=== PATIENT | male | born 1975 | race Two or more races ===

== ENCOUNTER 2024-09-20 19:36 | Emergency (ER) | payer MEDICAID, SELFPAY ==
--- NOTE | 2024-09-20 19:38 | PD.EDALLER ---
ED Allergic Reaction RME/HPI General Chief complaint: Epistaxis/Nasal Foreign Body Stated complaint: STAT Arrival date/time: 09/20/24 19:36 RME / HPI RME / HPI narrative: This section includes all my notes and documentations, including HPI, PE, and ED course. Messi Anna MD HPI: ROS: All negative except as documented in HPI. Physical Exam: General: Alert and oriented. Eyes: Conjunctivae and lids clear. ENT: No nasal congestion. Neck: Supple. Lungs: No respiratory distress. Skin: Warm and dry. Neuro: Alert and oriented X 3. Physical Exam: General: Alert and oriented. No acute distress when remaining still. Eyes: Conjunctivae and lids clear. ENT: No nasal congestion. Neck: Supple. Heart: RRR. Lungs: No respiratory distress. Good air movement. No rhonchi, wheezing, rales. Abdomen: Soft and nontender. Normal bowel sounds. No distension. No rebound or guarding. Back: No CVA tenderness. Skin: Warm and dry. Neuro: Alert and oriented X 3. Physical Exam: General: Alert and oriented. No acute distress. Eyes: Conjunctivae and lids clear. EOMI. PERRL. ENT: No nasal congestion. Pharynx normal. Tympanic membrane normal bilaterally. Neck: Supple. No lymphadenopathy. No JVD. Heart: RRR. Lungs: No respiratory distress. Good air movement. No rhonchi, wheezing, rales. Chest: No tenderness. Abdomen: Soft and nontender. Normal bowel sounds. No distension. No rebound or guarding. Back: No CVA tenderness. Legs: No clubbing, cyanosis, edema. Skin: Warm and dry. Neuro: Alert and oriented X 3. Cranial Nerves II-XII grossly intact. No peripheral motor deficits. Musculoskeletal: All major joints and bones are not tender with no limited ROM. I reviewed EMS and prison notes. I reviewed all diagnostic test results: My interpretation of the EKG is: My interpretation of the chest x-ray is: My review of the CT report is: Blood tests and urine tests Covid/Influenza At this point, diagnoses include: Treatment here included: Critical care Significant improvement Recommended Not yet done: I discussed the case with our hospitalist. About the presentation and exam and diagnostics and treatments here. And need of further care in the hospital. Will accept the patient. Not yet done: Based on my best medical judgment, made decision no further evaluation or treatment indicated at this time. Patient understands and agrees to the discharge instructions customized and printed, see below. Messi Anna MD Discharge Plan Patient/Caregiver Discharge Instructions Print Language: Latvian
[2024-09-20 19:39] VITALS: PULSE 91; RESP 18; O2SAT 90; BMI 35.2
[2024-09-20 19:42] VITALS: BP 160/107; PULSE 91; RESP 20; TEMP 37.1; O2SAT 98
--- NOTE | 2024-09-20 19:44 | PD.EDEPIST ---
ED Epistaxis RME/HPI General Chief complaint: Epistaxis/Nasal Foreign Body Stated complaint: NOSE BLEEDING Arrival date/time: 09/20/24 19:36 RME / HPI RME / HPI Narrative: This section includes all my notes and documentations, including HPI, PE, and ED course. Messi Anna MD HPI: ROS: All negative except as documented in HPI. Physical Exam: General: Alert and oriented. Eyes: Conjunctivae and lids clear. ENT: No nasal congestion. Neck: Supple. Lungs: No respiratory distress. Skin: Warm and dry. Neuro: Alert and oriented X 3. Physical Exam: General: Alert and oriented. No acute distress when remaining still. Eyes: Conjunctivae and lids clear. ENT: No nasal congestion. Neck: Supple. Heart: RRR. Lungs: No respiratory distress. Good air movement. No rhonchi, wheezing, rales. Abdomen: Soft and nontender. Normal bowel sounds. No distension. No rebound or guarding. Back: No CVA tenderness. Skin: Warm and dry. Neuro: Alert and oriented X 3. Physical Exam: General: Alert and oriented. No acute distress. Eyes: Conjunctivae and lids clear. EOMI. PERRL. ENT: No nasal congestion. Pharynx normal. Tympanic membrane normal bilaterally. Neck: Supple. No lymphadenopathy. No JVD. Heart: RRR. Lungs: No respiratory distress. Good air movement. No rhonchi, wheezing, rales. Chest: No tenderness. Abdomen: Soft and nontender. Normal bowel sounds. No distension. No rebound or guarding. Back: No CVA tenderness. Legs: No clubbing, cyanosis, edema. Skin: Warm and dry. Neuro: Alert and oriented X 3. Cranial Nerves II-XII grossly intact. No peripheral motor deficits. Musculoskeletal: All major joints and bones are not tender with no limited ROM. I reviewed EMS and [facility] notes. I reviewed all diagnostic test results: My interpretation of the EKG is: My interpretation of the chest x-ray is: My review of the CT report is: Blood tests and urine tests Covid/Influenza At this point, diagnoses include: Treatment here included: Critical care Significant improvement Recommended Not yet done: I discussed the case with our hospitalist. About the presentation and exam and diagnostics and treatments here. And need of further care in the hospital. Will accept the patient. Not yet done: Based on my best medical judgment, made decision no further evaluation or treatment indicated at this time. Patient understands and agrees to the discharge instructions customized and printed, see below. Messi Anna MD Related Data Allergies Allergy/AdvReac Type Severity Reaction Status Date / Time No Known Allergies Allergy Verified 09/20/24 19:39 Course Orders Category Date Time Status IV [Insert IV] STAT Care 09/20/24 19:43 Active Vital Signs Vital signs: Vital Signs Temperature 98.8 F 09/20/24 19:42 Pulse Rate 91 09/20/24 19:42 Respiratory Rate 20 09/20/24 19:42 Blood Pressure 160/107 H 09/20/24 19:42 Pulse Oximetry (%) 98 09/20/24 19:42 Oxygen Delivery Method Room Air 09/20/24 19:42 Discharge Plan Patient/Caregiver Discharge Instructions Print Language: Kenyan
--- NOTE | 2024-09-20 19:56 | EDNOTE_ITS ---
ED Epistaxis RME/HPI General Chief complaint: Epistaxis/Nasal Foreign Body Stated complaint: NOSE BLEEDING Time Seen by Provider: 09/20/24 19:57 Arrival date/time: 09/20/24 19:36 RME / HPI RME / HPI Narrative: 49-year-old male patient with significant history of hypertension, came in for evaluation regarding left-sided nosebleeding. Onset of symptoms about few minutes prior to ER visit sudden onset of nosebleeding while watching TV. Patient called EMS and panicky, patient is worried that he might from nosebleeding. Patient not take any blood thinner. On my evaluation patient is actively bleeding. Been bleeding for 30 minutes Related Data Previous Rx's ?Medication ?Instructions ?Recorded acetaminophen 300 mg-codeine 30 mg 1 tab PO TID PRN pa in #14 tabs 09/20/24 tablet amoxicillin 875 mg-potassium 1 tab PO BID #14 tabs 08/09 clavulanate 125 mg tablet alprazolam 0.5 mg tablet (Xanax) 0.5 mg PO BID PRN anx iety #20 tabs 09/21/24 magnesium oxide 400 mg PO BID #60 tabs 09/21 Allergies Allergy/AdvReac Type Severity Reaction Status Date / Time No Known Allergies Allergy Verified 09/20/24 19:39 Review of Systems Review of Systems Narrative Review of Systems: Review of system reviewed and within normal limits except mentioned in HPI ED Exam Narrative Physical exam: VITAL SIGNS: Reviewed. GENERAL APPEARANCE: Alert and interactive, follows commands, no acute distress, HEAD AND FACE: Non-traumatic. ENT: PERRL, pink conjunctivitis, eyelid no trauma, Mucous membrane moist. Active bleeding on the left nostril. NECK: Supple, nontender, no nuchal rigidity. CHEST: No tenderness, no crepitus, no paradoxical movement, no retractions. LUNGS: Clear, well ventilated, symmetric, no rales, no wheezing, no ronchi, no stridor, good breath sounds bilaterally. HEART: Regular rate, regular rhythm, no murmur, no gallops. ABDOMEN: Soft, positive bowel sounds, nondistended, no guarding, nontender, no rebound, no masses, RECTAL: Deferred. GENITAL: Deferred. NEUROLOGICAL: Gross motor function intact sensory function intact, Appropriate for age. MUSCULOSKELETAL: low back nontender, full range of motion. EXTREMITIES: Nontender, full range of motion. SKIN: Color pink, dry, no rash, no lacerations, no abrasions, no contusions. LYMPHATICS: Deferred. Course Quality Measures none Orders Category Date Time Status Bedside COVID-19 Antigen Test NOW Care 09/21/24 01:03 Completed Bedside Influenza A&B Antigen Test NOW Care 09/21/24 01:[address] Screening NOW Care 09/21/24 01:11 Completed EKG (ED ONLY) *Do not use* NOW Care 09/21/24 01:15 Completed IV [Insert IV] STAT Care 09/20/24 19:43 Completed Saline [Insert IV] NOW Care 09/21/24 01:03 Completed Straight [In and Out Catheter] X1 Care 09/21/24 01:[address] abdomen pelvis w con Stat Exams 09/21/24 01:[address] angio chest Stat Exams 09/21/24 01:[address] head/brain wo con Stat Exams 09/21/24 01:11 Completed EKG (ED Only) Stat Exams 09/21/24 01:15 Draft XR chest 1V portable Stat Exams 09/21/24 01:16 Completed ABG [Arterial Blood Gas] Stat Lab 09/21/24 01:31 Completed Alcohol, Blood Medical Stat Lab 09/21/24 01:49 Completed Amylase Stat Lab 09/21/24 01:49 Completed BNP [B-Type Natriuretic Peptide] Stat Lab 09/21/24 01:49 Completed Bilirubin,Direct Stat Lab 09/21/24 01:49 Completed Blood Culture (Lab) Stat Lab 09/21/24 01:49 Received CBC Stat Lab 09/21/24 01:49 Completed CBC [CBC] Stat Lab 09/20/24 20:00 Completed CK [Creatine Kinase] Stat Lab 09/21/24 01:49 Completed CMP [Comprehensive Metabolic Panel] Stat Lab 09/20/24 20:00 Completed CMP [Comprehensive Metabolic Panel] Stat Lab 09/21/24 01:49 Completed CRP [C-Reactive Protein] Stat Lab 09/21/24 01:49 Completed D-Dimer Stat Lab 09/21/24 01:49 Completed Drug Screen,Urine Stat Lab 09/21/24 02:37 Completed ESR [Sed Rate (ESR)] Stat Lab 09/21/24 01:49 Completed Free T4 (Free Thyroxine) Stat Lab 09/21/24 01:49 Completed Hemoglobin and Hematocrit Stat Lab 09/21/24 05:30 Completed Lactate (Lactic Acid) Stat Lab 09/21/24 01:49 Completed Lactic Acid, 3 HR Stat Lab 09/21/24 05:30 Completed Lipase Stat Lab 09/21/24 01:49 Completed Magnesium Stat Lab 09/20/24 20:00 Completed Magnesium Stat Lab 09/21/24 01:49 Completed PT [Prothrombin Time with INR] Stat Lab 09/20/24 20:00 Completed PT [Prothrombin Time with INR] Stat Lab 09/21/24 01:49 Completed PTT [Partial Thromboplastin Time] Stat Lab 09/20/24 20:00 Completed PTT [Partial Thromboplastin Time] Stat Lab 09/21/24 01:49 Completed Procalcitonin Stat Lab 09/21/24 01:49 Completed TSH [Thyroid Stimulating Hormone] Stat Lab 09/21/24 01:49 Completed Troponin I Stat Lab 09/20/24 20:00 Completed Troponin I Stat Lab 09/21/24 01:49 Completed UA, C/S IF [Urinalysis, C/S if Indicated] Stat Lab 09/21/24 02:37 Completed ALPRazoLAM [Xanax] Med 09/20/24 23:59 Discontinued 1 mg PO X1 ONE Amoxicillin/Pot Clav 875 [Augmentin 875] Med 09/20/24 22:37 Discontinued 1 tab PO X1 ONE Cocaine Topical 4% Med 09/20/24 21:10 Discontinued 4 ml TOP X1 ONE Famotidine Inj [Pepcid Inj] Med 09/21/24 01:07 Discontinued 20 mg IVP X1 ONE HYDROcodone/APAP 10/325 [[place] 10/325] Med 09/20/24 20:36 Discontinued 1 tab PO X1 ONE KCL 10% Liq UDC 15 ML Med 09/20/24 23:47 Discontinued 40 meq PO X1 ONE LORazepam [Ativan] Med 09/20/24 20:56 Discontinued 1 mg PO X1 ONE Lidocaine 1% W/Epi 1:100K 20Ml [Xylocaine 1% w/Epi 1: Med 09/20/24 21:08 Discontinued 100K 20 ml] 20 ml INFL X1 ONE Lidocaine 1% W/Epi 1:100K 20Ml [Xylocaine 1% w/Epi 1: Med 09/20/24 21:05 Discontinued 100K 20 ml] 30 ml Sodium Bicarb 8.4% 50ml Vial* 1 meq INFL X1 Magnesium Sulfate 4 GM Ivpb [Magnesium Sulfate Ivpb] Med 09/21/24 03:22 Discontinued 4 gm in 50 ml IV X1 Ondansetron Inj [Zofran Inj] Med 09/21/24 01:03 Discontinued 4 mg IVP X1 ONE Ondansetron Odt [Zofran Odt] Med 09/21/24 00:58 Discontinued 4 mg PO X1 ONE Pantoprazole Inj [Protonix Inj] Med 09/21/24 01:07 Discontinued 40 mg IVP X1 ONE Ringers Lactated 1000 ml [Lactated Ringers] 1,000 ml Med 09/21/24 01:04 Discontinued IV 1,000 mls/hr Scopolamine [Transderm-Scop Patch] Med 09/21/24 01:07 Discontinued 1 mg TOP X1 ONE Sodium Chloride 0.9% 1000 ml [Ns] 1,000 ml Med 09/20/24 22:54 Discontinued IV 999 mls/hr Sodium Chloride 0.9% 1000 ml [Ns] 1,000 ml Med 09/21/24 01:03 Discontinued IV 999 mls/hr Sodium Chloride 0.9% 1000 ml [Ns] 1,000 ml Med 09/21/24 03:24 Discontinued IV 999 mls/hr Tranexamic Acid 1,000 mg Ivpb [Tranexamic Acid Ivpb] Med 09/20/24 20:36 Discontinued 1,000 mg in 100 ml IV X1 carVEDILOL [Coreg] Med 09/20/24 21:57 Discontinued 3.125 mg PO X1 ONE Vital Signs Vital signs: Vital Signs Temperature 98.8 F 09/20/24 19:42 Pulse Rate 91 09/20/24 19:42 Respiratory Rate 20 09/20/24 19:42 Blood Pressure 160/107 H 09/20/24 19:42 Pulse Oximetry (%) 98 09/20/24 19:42 Oxygen Delivery Method Room Air 09/20/24 19:42 Epistaxis MDM Narrative MDM Narrative:: 49-year-old male patient with significant history of hypertension, came in for evaluation regarding left-sided nosebleeding. Onset of symptoms about few minutes prior to ER visit sudden onset of nosebleeding while watching TV. Patient called EMS and panicky, patient is worried that he might from nosebleeding. Patient not take any blood thinner. On my evaluation patient is actively bleeding. Been bleeding for 30 minutes Patient was very anxious, spitting blood, and actively bleeding. Initially I did Rhino Rocket 5.5 bilateral naris observed for 30 minutes still bleeding a little bit. I remove the Rhino Rocket, at this time I soak it with cocaine epinephrine with Xylocaine, and inserted 7.5 mm on the left and 5.5 mm on the right and eventually stop the bleeding completely. Patient is very anxious. Was also given Ativan, [place], and Augmentin. Patient was also given IV fluids and tranexamic acid. Patient does not want to go home because he is worried over recurrence of bleeding. Denies any abdominal pain headache cough or other complaints. Patient was discharged however patient does not want to go home so I endorsed the patient to Dr Anna at 11 pm. Patient data External records reviewed:: None Clinical information provided by:: patient and family Social determinants that could affect healthcare access:: none Patient has the following chronic illnesses:: Hypertension How is presenting disease/condition affected by chronic disease/condition?: uneffected by Evaluation data The following diagnostics were reviewed and interpreted by me:: lab results and radiology exam(s) Lab and/or radiology exams considered but not ordered:: None Interpretation Summary: CBC did not show any sign of anemia platelets normal Medications / Prescriptions Medications or Prescriptions considered but not ordered:: None Medication administrations:: Medication Administration History Discontinued Medications Hydrocodone Bitart/Acetaminophen (Hydrocodone/Apap 10/325 Tab) 1 tab PO X1 ONE Stop: 09/20/24 20:37 Last Admin: 09/20/24 20:46 Dose: 1 tab Documented By: MARYJANE Alprazolam (Alprazolam 0.25 Mg Tablet) 1 mg PO X1 ONE Stop: 09/21/24 00:00 Last Admin: 09/21/24 00:13 Dose: 1 mg Documented By: HENRIQUE Amoxicillin/Clavulanate Potassium (Amoxicillin/Pot Clav 875 Tablet) 1 tab PO X1 ONE Stop: 09/20/24 22:38 Last Admin: 09/20/24 22:56 Dose: 1 tab Documented By: HENRIQUE Carvedilol (Carvedilol 3.125 Mg Tablet) 3.125 mg PO X1 ONE Stop: 09/20/24 21:58 Last Admin: 09/20/24 22:03 Dose: 3.125 mg Documented By: HENRIQUE Cocaine HCl (Cocaine Top Cecilia 4% Vial 4 Ml) 4 ml TOP X1 ONE Stop: 09/20/24 21:11 Last Admin: 09/20/24 21:30 Dose: 4 ml Documented By: HENRIQUE Lidocaine/Epinephrine 30 ml/ (Sodium Bicarbonate 1 meq) 0 ml INFL X1 ONE Stop: 09/20/24 21:06 Last Admin: 09/20/24 21:10 Dose: Not Given Documented By: HENRIQUE Non-Admin Reason: Cancelled by Provider Famotidine (Famotidine Inj 10 Mg/Ml Vial 2 Ml) 20 mg IVP X1 ONE Stop: 09/21/24 01:08 Last Admin: 09/21/24 01:20 Dose: 20 mg Documented By: HENRIQUE Tranexamic Acid (Tranexamic Acid Ivpb) 1,000 mg in 100 mls @ 200 mls/hr IV X1 ONE Stop: 09/20/24 21:05 Last Infusion: 09/20/24 21:17 Dose: Infused Documented By: Admin: 09/20/24 20:46 Dose: 200 mls/hr Documented By: MARYJANE Sodium Chloride (Ns) 1,000 mls @ 999 mls/hr IV .Q1H1M ONE Stop: 09/20/24 23:54 Last Infusion: 09/21/24 00:16 Dose: Infused Documented By: Admin: 09/20/24 23:01 Dose: 999 mls/hr Documented By: HENRIQUE Sodium Chloride (Ns) 1,000 mls @ 999 mls/hr IV .Q1H1M ONE Stop: 09/21/24 02:03 Last Admin: 09/21/24 01:32 Dose: Not Given Documented By: HENRIQUE Non-Admin Reason: Cancelled by Provider Lactated Ringer's (Lactated Ringers) 1,000 mls @ 1,000 mls/hr IV .Q1H ONE Stop: 09/21/24 02:03 Last Infusion: 09/21/24 02:59 Dose: Infused Documented By: Admin: 09/21/24 01:20 Dose: 1,000 mls/hr Documented By: HENRIQUE Magnesium Sulfate (Magnesium Sulfate Ivpb) 4 gm in 50 mls @ 12.5 mls/hr IV X1 ONE Stop: 09/21/24 07:21 Last Infusion: 09/21/24 06:17 Dose: Infused Documented By: Admin: 09/21/24 03:34 Dose: 12.5 mls/hr Documented By: HENRIQUE Sodium Chloride (Ns) 1,000 mls @ 999 mls/hr IV .Q1H1M ONE Stop: 09/21/24 04:24 Last Infusion: 09/21/24 04:49 Dose: Infused Documented By: Admin: 09/21/24 03:40 Dose: 999 mls/hr Documented By: HENRIQUE Lidocaine/Epinephrine (Lidocaine 1% W/Epi 1:100k 20 Ml Vial) 20 ml INFL X1 ONE Stop: 09/20/24 21:09 Last Admin: 09/20/24 21:30 Dose: 20 ml Documented By: HENRIQUE Lorazepam (Lorazepam 0.5 Mg Tablet) 1 mg PO X1 ONE Stop: 09/20/24 20:57 Last Admin: 09/20/24 21:03 Dose: 1 mg Documented By: HENRIQUE Ondansetron HCl (Ondansetron Odt 4 Mg Tabrap) 4 mg PO X1 ONE; Protocol Stop: 09/21/24 00:59 Last Admin: 09/21/24 01:32 Dose: Not Given Documented By: HENRIQUE Non-Admin Reason: Cancelled by Provider Ondansetron HCl (Ondansetron Inj 2 Mg/Ml Inj 2 Ml) 4 mg IVP X1 ONE; Protocol Stop: 09/21/24 01:04 Last Admin: 09/21/24 01:19 Dose: 4 mg Documented By: HENRIQUE Pantoprazole Sodium (Pantoprazole Inj 40 Mg Vial) 40 mg IVP X1 ONE Stop: 09/21/24 01:08 Last Admin: 09/21/24 01:20 Dose: 40 mg Documented By: HENRIQUE Potassium Chloride (Potassium Chloride 10% 20 Meq/15 Ml Udc) 40 meq PO X1 ONE Stop: 09/20/24 23:48 Last Admin: 09/21/24 00:13 Dose: 40 meq Documented By: HENRIQUE Scopolamine (Scopolamine 1 Mg Tdsy) 1 mg TOP X1 ONE Stop: 09/21/24 01:08 Last Admin: 09/21/24 01:20 Dose: 1 mg Documented By: HENRIQUE IV fluids, [place], Xanax, Augmentin Consultations Consultation(s) initiated? (list below): No Diagnosis Epistaxis Differential Diagnosis: anterior epistaxis and posterior epistaxis Most likely diagnosis given after review of the tests above:: Nosebleeding Admission Indicated Admission indicated?: not indicated Admission Request Was there a request for admission?: No Disposition Plan Disposition Plan: Discharge Discharge Attestation Discharge Attestation: The patient and all family members were given an opportunity to ask questions and understood the discharge instructions. Discharge instructions specifically effects, indications for sooner follow up or return to the emergency department, and the expected course of current diagnosis. Patient condition: Stable Discharge Plan Plan Patient Disposition: HOME (Self Care) Discharge Disposition comment: Stable Prescriptions/Referrals Prescriptions/Med Rec: New amoxicillin-pot clavulanate 875-125 mg tablet 1 tab PO BID Qty: 14 0RF acetaminophen-codeine 300-30 mg tablet 1 tab PO TID PRN (Reason: pain) Qty: 14 0RF alprazolam [Xanax] 0.5 mg tablet 0.5 mg PO BID PRN (Reason: anxiety) Qty: 20 0RF magnesium oxide 400 mg magnesium tablet 400 mg PO BID Qty: 60 0RF Referrals: No Primary/Family,Physician [Primary Care Provider] - In 1 week Problem List Clinical Impression: Epistaxis, Hypomagnesemia Patient/Caregiver Discharge Instructions Discharge Activity: activity as tolerated Education Materials: ED Epistaxis (Adult) Additional Instructions: Discharge Instructions from Dr. Anna printed for you: 1. Fortunately, we were able to stop your severe nosebleed. 2. Quit alcohol because it causes many serious problems. Including decreased ability of your body to stop bleeding. 3. Keep the bilateral nasal packing (Rapid Rhino 7.5 cm) until cleared by a doctor taking care of you. 4. Avoid messing with the packings and coughing and sneezing, if possible. 5. Xanax for nerves and anxiety. Avoid more than 2 to 3 pills/week to avoid dependence. 6. You are treated for severely low magnesium level. Take magnesium pills as prescribed. Increase food rich in magnesium. Such as green and leafy vegetables and peanuts and cashews and almonds. 7. See a private doctor on 09/22/24 for recheck and further care. Ask for referral to see ENT specialist. Ask to review all test results and official radiology reports, to make sure you receive all necessary follow-ups and monitoring, including repeat magnesium level. 8. See a doctor on 09/23/2024 for removal of the packings. 9. Seek immediate medical care with heavy bleeding or with any concerns. Unfortunately, this [facility] has no ENT specialist. If you want to check if the hospital has ENT specialist, call the hospital and ask if they have 24-hour ENT coverage in the emergency room. Print Language: British Stand Alone Forms: Freda Award Info., Patient Portal Info Letter EDUARDO/EDWIN Supervising Physician EDUARDO/EDWIN Supervising Physician: MD Shoshana
[2024-09-20 20:27] LABS: Basophils # (Auto) 0.1 Thou/mm3 (0.0-0.2); Basophils % (Auto) 0 % (0-2.5); Eosinophils # (Auto) 0.2 Thou/mm3 (0.0-0.5); Eosinophils % (Auto) 1 % (0-10); Hematocrit 47.2 % (41.0-53.0); Hemoglobin 16.3 g/dL (13.5-16.0); Immature Granulocytes Auto 0.05 Thou/mm3 (0.00-0.00); Lymphocytes # (Auto) 5.0 Thou/mm3 (1.0-4.8); Lymphocytes % (Auto) 36 % (10-50); Mean Corpuscular HGB Conc 34.5 g/dl (31.0-37.0); Mean Corpuscular Hemoglobin 31.2 pg (25.0-35.0); Mean Corpuscular Volume 90 fL (80-100); Monocytes # (Auto) 1.3 Thou/mm3 (0.0-0.8); Monocytes % (Auto) 9 % (0-12); Neutrophils # (Auto) 7.2 Thou/mm3 (1.8-7.7); Neutrophils % (Auto) 52 % (37-80); Nucleated Red Blood Cell # 0.00 Thou/mm3 (0.00-0.00); Nucleated Red Blood Cell % 0 /100 WBC (0); Platelet Count 343 Thou/mm3 (140-440); RDW Standard Deviation 42.8 fL (35.1-43.9); Red Blood Count 5.23 Miln/mm3 (4.50-5.90); White Blood Count 13.7 Thou/mm3 (3.8-10.6)
[2024-09-20 20:46] LABS: INR 0.9 (0.9-1.3); Partial Thromboplastin Time 26.0 Seconds (22.0-36.0); Prothrombin Time 10.3 Seconds (9.0-12.2)
[2024-09-20] MEDS: TRANEXAMIC ACID 1,000 MG IVPB 1,000 MG/100 ML BAG 200 MG IV (20:46)
[2024-09-20 20:51] LABS: Alanine Aminotransferase 44 U/L (10-49); Albumin, Serum 4.9 gm/dL (3.5-5.0); Albumin/Globulin Ratio 1.8 (1.2-2.2); Alkaline Phosphatase 114 U/L (46-116); Anion Gap 14 (7-16); Aspartate Amino Transferase 25 U/L (0-34); BUN/Creatinine Ratio 10 Ratio (12-20); Bilirubin,Total 0.6 mg/dL (0.3-1.2); Blood Urea Nitrogen 8 mg/dL (9-23); Calcium 10.0 mg/dL (8.3-10.6); Calcium (Corrected) 10.0 mg/dL (8.5-10.1); Carbon Dioxide 23.3 mMol/L (20.0-31.0); Chloride 104 mMol/L (98-107); Creatinine (Component) 0.8 mg/dL (0.6-1.3); Estimated Creatinine Clearance 125.8 mL/min (>60); Globulin 2.8 gm/dL (2.3-3.5); Glucose 93 mg/dL (74-106); Osmolality,Calculated 279 (275-295); Potassium 3.3 mMol/L (3.4-5.1); Sodium 141 mMol/L (136-145); Total Protein 7.7 gm/dL (5.7-8.2); eGFR > 60 See Note
[2024-09-20] MEDS: COCAINE 4% TOP (21:30)
[2024-09-20] MEDS: LIDOCAINE 1% W/EPI 1:100K 20 ML VIAL INFL (21:30)
[2024-09-20 22:03] VITALS: BP 119/102; PULSE 132
[2024-09-20 22:18] VITALS: BP 124/95; PULSE 125; RESP 19; TEMP 36.8; O2SAT 99
[2024-09-20] MEDS: AMOXICILLIN/POT CLAV 875 TABLET 1 TAB PO (22:56)
[2024-09-20] MEDS: SODIUM CHLORIDE 0.9% 1000 ML 1,000 ML 999 ML IV (23:01)
[2024-09-21 00:05] LABS: Magnesium 2.3 mg/dL (1.6-2.6); Troponin I < 0.020 ng/mL (0.0-0.045)
[2024-09-21] MEDS: POTASSIUM CHLORIDE 10% 20 MEQ/15 ML UDC 40 MEQ PO (00:13)
--- NOTE | 2024-09-21 00:52 | PD.EDADDENDU ---
Emergency Room Addendum <Shyann Espinoza - Last Filed: 09/21/24 05:10> Addendum Narrative: I took over the care from previous shift physician at 11 PM on 09/20/2024. See previous notes for complete H & P and ED course. I reviewed all diagnostic test results. My interpretation of the EKG is: Sinus tachycardia (103 bpm) with nonspecific ST-T changes. My interpretation of the chest x-ray is: NAD. My review of the Head/Brain CT report is no evidence of intracranial hemorrhage, mass effect or midline shift. Periventricular chronic small vessel ischemia and volume loss. My review of the Chest CTA report is NAD. My review of the Abdomen/Pelvis CT report is There are calcified nodules in the bilateral lungs, the largest measuring 6 mm in the left lower lobe. There are multiple renal cysts, the largest measuring 2 cm. Blood tests and urine tests Covid/Influenza: Negative. Diagnoses include: Epistaxis. Treatment here included Rapid Rhino, Xylocaine w/ Epi 20 mL, Topical Cocaine 4% 4 mL, Xanax 1 mg, Augmentin 875, IVF, [place] 10% 15 mL, KCl 10% 15 mL, Ativan 1 mg, Tranexamic acid IVpb 1 G, Coreg 3.125 mg, Ringers Lactated, Zofran 4 mg. Based on my best medical judgment, made decision no further evaluation or treatment indicated at this time. Patient understands and agrees to the discharge instructions customized and printed, see below. Discharge Instructions from Dr. Anna printed for you: 1. Fortunately, we were able to stop your severe nosebleed. 2. Quit alcohol because it causes many serious problems. Including decreased ability of your body to stop bleeding. 3. Keep the bilateral nasal packing (Rapid Rhino 7.5 cm) until cleared by a doctor taking care of you. 4. Avoid messing with the packings and coughing and sneezing, if possible. 5. Xanax for nerves and anxiety. Avoid more than 2 to 3 pills/week to avoid dependence. 6. You are treated for severely low magnesium level. Take magnesium pills as prescribed. Increase food rich in magnesium. Such as green and leafy vegetables and peanuts and cashews and almonds. 7. See a private doctor on 09/22/24 for recheck and further care. Ask for referral to see ENT specialist. Ask to review all test results and official radiology reports, to make sure you receive all necessary followups and monitoring, including repeat magnesium level. 8. See a doctor on 09/23/2024 for removal of the packings. 9. Seek immediate medical care with heavy bleeding or with any concerns. Unfortunately, this hospital has no ENT specialist. If you want to check if the hospital has ENT specialist, call the hospital and ask if they have 24-hour ENT coverage in the emergency room. Messi Anna MD <Messi Anna MD - Last Filed: 09/21/24 17:47> Addendum Narrative: I took over the care from Matt Barahona NP at 11 PM on 09/20/2024. See previous notes for complete H & P and ED course. Patient was officially discharged by HOUSE OFFICER. During discharge while transporting from bed to wheelchair, he had a near syncopal episode with large hematemesis and low BP and diaphoresis and cyanosis and vertigo. Full reevaluation performed. I reviewed all diagnostic test results. My interpretation of the EKG is: Sinus tachycardia (103 bpm) with nonspecific ST-T changes. My interpretation of the chest x-ray is: NAD. My review of the Head/Brain CT report is NAD. My review of the Chest CTA report is NAD. My review of the Abdomen/Pelvis CT report is NAD. Blood and urine test remarkable for Hgb 16.3 -> 12 -> 11.8 and Mg 1.3.and K 3.3. Covid/Influenza: Negative. Diagnoses include: Epistaxis and Hypomagnesemia. Treatment here from me included: IVF, Zofran, Scopolamine patch, Xanax, Famotidine, Protonix, oral KCl 40 meq, and MgSO4 4 gram IV. Patient reports heavy alcohol consumption regularly, this was probably the underlying factor for epistaxis. Recommended quitting alcohol and more outpatient care. Based on my best medical judgment, made decision no further evaluation or treatment indicated at this time. Patient understands and agrees to the discharge instructions customized and printed, see below. Discharge Instructions from Dr. Anna printed for you: 1. Fortunately, we were able to stop your severe nosebleed. 2. Quit alcohol because it causes many serious problems. Including decreased ability of your body to stop bleeding. 3. Keep the bilateral nasal packing (Rapid Rhino 7.5 cm) until cleared by a doctor taking care of you. 4. Avoid messing with the packings and coughing and sneezing, if possible. 5. Xanax for nerves and anxiety. Avoid more than 2 to 3 pills/week to avoid dependence. 6. You are treated for severely low magnesium level. Take magnesium pills as prescribed. Increase food rich in magnesium. Such as green and leafy vegetables and peanuts and cashews and almonds. 7. See a private doctor on 09/22/24 for recheck and further care. Ask for referral to see ENT specialist. Ask to review all test results and official radiology reports, to make sure you receive all necessary followups and monitoring, including repeat magnesium level. 8. See a doctor on 09/23/2024 for removal of the packings. 9. Seek immediate medical care with heavy bleeding or with any concerns. Unfortunately, this [facility] has no ENT specialist. If you want to check if the hospital has ENT specialist, call the hospital and ask if they have 24-hour ENT coverage in the emergency room. Messi Anna MD
[2024-09-21 00:53] VITALS: BP 123/94; PULSE 135; RESP 18; TEMP 36.8; O2SAT 99
--- NOTE | 2024-09-21 00:54 | PC.NURSE ---
DR. RABAGO OK TO DISCHARGE HOME WITH HR 135.
--- NOTE | 2024-09-21 01:11 | XR_ITS ---
Examination: CT brain head without contrast. 2-D sagittal coronal reconstructions Date and time of exam:September 21, 2024, 0334 hours INDICATIONS: Dizziness altered mental status today CTDI: vol (mGy):58.9 DLP: (mGycm):1205. Technique: Multiple CT axial sections of the brain have been obtained, 5 mm slice thickness. Contrast has not been administered. 2-D sagittal, coronal reconstructions have been obtained Low dose protocols were performed. One or more of the following dose reduction techniques were used; automated exposure control, adjustment of the mA and/or KV according to patient size, use of iterative reconstruction technique. Findings: No significant ventricular enlargement. Intra-axial or extra-axial hemorrhage density is not seen. No mass effect or midline shift Basal cisterns are not remarkable. Fourth ventricle is midline. Cranial vault intact. Impression: Negative for acute hemorrhage, mass effect or midline shift Advise clinical correlation and follow up accordingly
--- NOTE | 2024-09-21 01:11 | XR_ITS ---
Examination: CTA chest with intravenous contrast 2-D reconstructions 3-D reconstructions, vascular Date and time of exam: September 21, 2024, 0336 hours. INDICATIONS: Shortness of breath tachycardia chest pain today. CTDI: vol (mGy) 18.6. DLP: (mGycm) 712. Technique: Multiple axial sections of the thorax have been obtained. 3 mm slice thickness, from below the hemidiaphragms to above the apices of the lungs. Mediastinal and lung density settings have been obtained. 2-D sagittal and coronal reconstructions. 3-D angiographic renderings, 3-D volume renderings, 3D post processing, vascular maximum intensity projections obtained. Contrast administered is 100 cc Isovue 370.. Low dose protocols were performed. One or more of the following dose reduction techniques were used; automated exposure control, adjustment of the mA and/or KV according to patient size, use of iterative reconstruction technique. Findings: No thoracic aortic aneurysm dilatation. Pulmonary artery segments are not enlarged. No pulmonary artery filling defects. No mediastinal lymphadenopathy. Small bilateral calcified granulomas. No pneumonia or pulmonary edema. No visualized liver or splenic lesions. No gallstones. No pancreatic mass IMPRESSION: Negative for pulmonary artery emboli. No pneumonia or pulmonary edema
--- NOTE | 2024-09-21 01:14 | XR_ITS ---
Examination: CT abdomen with intravenous contrast CT pelvis with intravenous contrast 2-D coronal reconstructions 2-D sagittal reconstructions Date and time of exam:September 21, 2024, 0339 hours INDICATIONS: Dizziness and abdominal pain tachycardia today. CTDI: vol (mGy) 21.7. DLP: (mGycm) 1003 Technique: Multiple axial sections of the abdomen and pelvis have been obtained. 64 slice high-resolution scanner used. 3 mm axial sections have been obtained, post intravenous injection 100 cc Isovue 370. 2-D sagittal, coronal reconstructions obtained. Low dose protocols were performed. One or more of the following dose reduction techniques were used; automated exposure control, adjustment of the mA and/or KV according to patient size, use of iterative reconstruction technique. Findings: No focal liver or splenic lesions. No gallstones. Normal pancreas. No renal or ureteral calculi, small benign left renal cyst. Aorta normal size. Normal appendix. No bowel obstruction or diverticulitis. Urinary bladder intact. Osseous structures intact. IMPRESSION: No acute process in the abdomen or pelvis
--- NOTE | 2024-09-21 01:15 | EKG_ITS ---
[facility] Test Date: 2024-09-21 Pat Name: BRAYAN CALIX Department: Room: - Gender: Male Cooperative Manager: : 1975 Requested By: Messi Phoenix Order Number: [id number] Reading MD: Messi Phoenix Measurements Intervals [place] Rate: 103 P: 27 PA: 140 QRS: -2 QRSD: 89 T: -9 QT: 347 QTc: 456 Interpretive Statements SINUS TACHYCARDIA ABNORMAL RHYTHM ECG No previous ECG available for comparison /[id number]/[email or web address]/[id number].pdf
--- NOTE | 2024-09-21 01:16 | XR_ITS ---
Examination: AP chest single view TECHNIQUE: AP portable upright chest single view Date and time: September 21, 2024 0151 hours INDICATIONS: Shortness of breath today. FINDINGS: Normal heart size. Mild elevation right hemidiaphragm. No pneumonia or pulmonary edema. IMPRESSION: No active disease.
[2024-09-21] MEDS: ONDANSETRON INJ 2 MG/ML INJ 2 ML 4 MG IVP (01:19)
[2024-09-21] MEDS: FAMOTIDINE INJ 10 MG/ML VIAL 2 ML 20 MG IVP (01:20)
[2024-09-21] MEDS: SCOPOLAMINE 1 MG TDSY TOP (01:20)
[2024-09-21] MEDS: RINGERS LACTATED 1000 ML 1,000 ML IV (01:20)
[2024-09-21 01:25] VITALS: BP 106/73; PULSE 103; RESP 20; TEMP 37; O2SAT 97
[2024-09-21 01:35] LABS: Base Excess -4 (-3-3); HCO3 21 mEq/L (20-26); Inspired Oxygen, FIO2 21 %; O2 Saturation 95 % (91-98); PCO2 36 mmHg (32.0-48.0); PO2 76 mmHg (83-108); pH, Arterial 7.36 (7.35-7.45)
[2024-09-21 01:41] LABS: Allen Test Performed/OK; Puncture Site Left Radial
[2024-09-21 02:01] LABS: Lactate (Lactic Acid) 2.5 mMol/L (0.4-2.0)
[2024-09-21 02:04] LABS: Basophils # (Auto) 0.0 Thou/mm3 (0.0-0.2); Basophils % (Auto) 0 % (0-2.5); Eosinophils # (Auto) 0.0 Thou/mm3 (0.0-0.5); Eosinophils % (Auto) 0 % (0-10); Hematocrit 34.8 % (41.0-53.0); Hemoglobin 12.0 g/dL (13.5-16.0); Immature Granulocytes Auto 0.07 Thou/mm3 (0.00-0.00); Lymphocytes # (Auto) 2.0 Thou/mm3 (1.0-4.8); Lymphocytes % (Auto) 15 % (10-50); Mean Corpuscular HGB Conc 34.5 g/dl (31.0-37.0); Mean Corpuscular Hemoglobin 31.7 pg (25.0-35.0); Mean Corpuscular Volume 92 fL (80-100); Monocytes # (Auto) 0.7 Thou/mm3 (0.0-0.8); Monocytes % (Auto) 5 % (0-12); Neutrophils # (Auto) 10.3 Thou/mm3 (1.8-7.7); Neutrophils % (Auto) 78 % (37-80); Nucleated Red Blood Cell # 0.00 Thou/mm3 (0.00-0.00); Nucleated Red Blood Cell % 0 /100 WBC (0); Platelet Count 245 Thou/mm3 (140-440); RDW Standard Deviation 43.5 fL (35.1-43.9); Red Blood Count 3.78 Miln/mm3 (4.50-5.90); White Blood Count 13.2 Thou/mm3 (3.8-10.6)
[2024-09-21 02:16] LABS: Sed Rate (ESR) 1 mm/hr (0-20)
[2024-09-21 02:21] LABS: INR 1.1 (0.9-1.3); Partial Thromboplastin Time 21.7 Seconds (22.0-36.0); Prothrombin Time 11.9 Seconds (9.0-12.2)
[2024-09-21 02:25] LABS: B-Type Natriuretic Peptide 30 pg/mL (0-100)
[2024-09-21 02:36] LABS: D-Dimer < 250 ng/mL (<600)
[2024-09-21 02:51] LABS: Collection Type, Urine Clean Catch; RBC,Urine 0 /hpf (0-3); WBC,Urine 0 /hpf (0-5)
[2024-09-21 03:00] LABS: Alanine Aminotransferase 28 U/L (10-49); Albumin, Serum 3.3 gm/dL (3.5-5.0); Albumin/Globulin Ratio 1.9 (1.2-2.2); Alcohol, Blood Medical < 3.0 mg/dL (0-10.0); Alkaline Phosphatase 69 U/L (46-116); Amylase 38 U/L (30-118); Anion Gap 11 (7-16); Aspartate Amino Transferase 18 U/L (0-34); BUN/Creatinine Ratio 29 Ratio (12-20); Bilirubin,Direct 0.2 mg/dL (0.0-0.3); Bilirubin,Total 0.5 mg/dL (0.3-1.2); Blood Urea Nitrogen 20 mg/dL (9-23); C-Reactive Protein < 0.5 mg/dL (0.0-0.9); Calcium 7.6 mg/dL (8.3-10.6); Calcium (Corrected) 8.2 mg/dL (8.5-10.1); Carbon Dioxide 21.2 mMol/L (20.0-31.0); Chloride 113 mMol/L (98-107); Creatine Kinase 49 U/L (34-171); Creatinine (Component) 0.7 mg/dL (0.6-1.3); Estimated Creatinine Clearance 143.7 mL/min (>60); Free T4 (Free Thyroxine) 0.95 ng/dL (0.89-1.76); Globulin 1.7 gm/dL (2.3-3.5); Glucose 119 mg/dL (74-106); Lipase 25 U/L (12-53); Magnesium 1.3 mg/dL (1.6-2.6); Osmolality,Calculated 292 (275-295); Potassium 4.0 mMol/L (3.4-5.1); Procalcitonin 0.04 ng/ml (0.0-0.49); Sodium 145 mMol/L (136-145); Thyroid Stimulating Hormone 2.78 uIU/mL (0.55-4.78); Total Protein 5.0 gm/dL (5.7-8.2); Troponin I < 0.020 ng/mL (0.0-0.045); eGFR > 60 See Note
[2024-09-21] MEDS: Magnesium Sulfate 4 GM Ivpb 4 GM/50 ML BAG IV (03:34)
[2024-09-21] MEDS: SODIUM CHLORIDE 0.9% 1000 ML 1,000 ML 999 ML IV (03:40)
[2024-09-21 03:47] LABS: Amphetamine/Methamp Scrn,U Negative (Negative); Barbiturate Screen,Urine Negative (Negative); Benzodiazepines Screen,Urine Negative (Negative); Benzoylecgonine Screen, Ur Positive (Negative); Fentanyl Screen,Urine Negative (Negative); Opiate Screen,Urine Positive (Negative); THC Screen,Urine Negative (Negative)
[2024-09-21 04:04] VITALS: BP 117/78; PULSE 84; RESP 12; TEMP 37; O2SAT 98
[2024-09-21 04:18] LABS: Bacteria,Urine Rare; Bilirubin,Urine Negative (Negative); Blood,Urine Negative (Negative); Clarity,Urine Clear (Clear/Hazy); Color,Urine Lt-Yellow (Lt Yel-Yel); Culture Indicated,Urine Not Indicated; Glucose, Urine Negative (Negative); Ketones,Urine 1+ (Negative); Leukocyte Esterase,Urine Negative (Negative); Nitrite,Urine Negative (Negative); PH,Urine 6.0 (5.0-7.0); Protein,Urine Negative (Neg - Trace); Specific Gravity,Urine 1.028 (1.001-1.035); Squamous Epithelial Cell,Urine < 1 /hpf (0-5); Urobilinogen,Urine Negative mg/dL (0.0-1.0)
--- NOTE | 2024-09-21 04:37 | PRELIM_ITS ---
CT scan of the head without intravenous contrast (axial sections with sagittal and coronal reformats) September 21, 2024 0334 hours Clinical history: Dizziness Radiation Dose: Total exam DLP 1207 mGy/cm Comparison: No prior study is available for comparison. Findings: There is no evidence of intracranial hemorrhage, mass effect or midline shift. There are periventricular white matter hypodensities, compatible with chronic small vessel ischemia. There is mild volume loss. The calvarium is unremarkable. There is moderate mucosal thickening in the left maxillary, sphenoid and ethmoid sinus. The mastoid air cells and the visualized paranasal sinuses are clear. Impression: No evidence of intracranial hemorrhage, mass effect or midline shift. Periventricular chronic small vessel ischemia and volume loss. Report Electronically Signed By: Ricrado Baker 09/21/2024 4:37:09 AM [EST]
--- NOTE | 2024-09-21 04:42 | PRELIM_ITS ---
CT angiogram of the chest with intravenous contrast (axial sections with sagittal and coronal reformats) September 21, 2024 0336 hours Clinical History: Sob Tachycardia Technique:Helical axial sections with sagittal and coronal reformats of the chest were obtained with intravenous contrast. Iterative reconstruction technique was employed to reduce patient radiation exposure. 3D/MIP reconstructed images were also provided. Comparison: No prior study is available for comparison. Findings: There is no filling defect within the pulmonary artery divisions to suggest pulmonary thromboembolism. The mediastinum demonstrates no evidence of mass or lymphadenopathy. The thoracic aorta is unremarkable. There is no pericardial effusion. There are calcified nodules in the bilateral lungs, the largest measuring 6 mm in the left lower lobe ( coronal image 114/174) No evidence of pleural effusion or pneumothorax. The osseous structures are unremarkable. The visualized upper abdominal viscera are unremarkable. Impression: No CT evidence of pulmonary thromboembolism or other acute intrathoracic pathology. Report Electronically Signed By: Ricardo Baker 09/21/2024 4:42:03 AM [EST]
--- NOTE | 2024-09-21 04:45 | PRELIM_ITS ---
CT scan of the abdomen and pelvis with intravenous contrast (axial sections with sagittal and coronal reformats) September 21, 2024 0336 hours Clinical History: Hematemesis Radiation Dose: Total exam DLP 2082 mGy/cm Comparison: No prior study is available for comparison. Findings: There are calcified nodules in the bilateral lungs, the largest measuring 6 mm in the left lower lobe. There are multiple renal cysts, the largest measuring 2 cm. The liver, gallbladder, pancreas, spleen and adrenals are unremarkable. No evidence of bowel obstruction. The appendix is within normal limits (axial images 148-163/300). There is no mesenteric or retroperitoneal adenopathy. The urinary bladder is unremarkable. There is no free fluid or free air. The osseous structures are unremarkable. Impression: No evidence of acute intra-abdominal or pelvic pathology. Other findings as described above. Report Electronically Signed By: Ricardo Baker 09/21/2024 4:44:03 AM [EST]
[2024-09-21 04:56] LABS: Reflex Lactate? Y
[2024-09-21 05:40] LABS: Lactic Acid, 3 HR 1.6 mMol/L (0.4-2.0)
[2024-09-21 05:45] LABS: Hematocrit 34.0 % (41.0-53.0); Hemoglobin 11.8 g/dL (13.5-16.0)
[2024-09-21 06:20] VITALS: BP 112/78; PULSE 83; RESP 15; TEMP 36.8; O2SAT 95
== END 2024-09-21 06:21 | disposition home or self-care (01) ==
PROVIDERS: Nurse Practitioner Family; Emergency Provider Emergency Medicine
DX: R04.0 Epistaxis (principal); E83.42 Hypomagnesemia; I10 Essential (primary) hypertension; R00.0 Tachycardia, unspecified; R91.8 Other nonspecific abnormal finding of lung field; N28.1 Cyst of kidney, acquired
CPT/HCPCS: 30901; 36415; 36600; 70450; 71045; 71275; 74177; 80053; 80307; 80320; 81001; 82150; 82248; 82550; 82803; 83605; 83690; 83735; 83880; 84145; 84439; 84443; 84484; 85014; 85018; 85025; 85379; 85610; 85652; 85730; 86140; 87040; 87400; 87811; 93005; 96361; 96365; 96366; 96375; 99284; A4649; J2405; J2470; J3475; J3490; J7030; J7120; Q9967; A9270; G0480